=== PATIENT | male | born 1955 | race Caucasian/White ===

== ENCOUNTER 2017-09-02 07:56 | Emergency (ER) | payer BC ==
[2017-09-02 08:18] VITALS: BP 140/71
--- NOTE | 2017-09-02 08:36 | UC ---
Skin Complaint HPI - HPI Summary HPI Summary: Pt reports he removed a tick yesterday morning. Pt believes that tick was attached at least 2-4 days. - History of Current Complaint Chief Complaint: UCBiteInjury Time Seen by Provider: 09/02/17 08:26 Stated Complaint: TICK BITE Hx Obtained From: Patient Onset/Duration: Sudden Onset, Lasting Days, Resolved Skin Exposure Onset/Duration: Days Ago Timing: Constant Onset Severity: Mild Current Severity: None Location: Other - posterior upper right thigh Character: Redness Aggravating Factor(s): Nothing Alleviating Factor(s): Unknown Associated Signs & Symptoms: Positive: Negative Related History: Insect Bite/Sting - Allergy/Home Medications Allergies/Adverse Reactions: Allergies Allergy/AdvReac Type Severity Reaction Status Date / Time No Known Allergies Allergy Verified 09/02/17 08:08 Home Medications: Home Medications Aspirin Low Dose CHEW TAB* [Aspirin Low Dose TAB*] 81 mg PO DAILY 09/02/17 [ History Confirmed 09/02/17] Atenolol TAB* [Tenormin TAB* 50 MG] 100 mg PO DAILY 09/02/17 [History Confirmed 09/02/17] FLUoxetine CAP* [Prozac CAP*] 60 mg PO DAILY 09/02/17 [History Confirmed ] Montelukast Sodium TAB* [Singulair 10 MG TAB*] 10 mg PO DAILY 09/02/17 [History Confirmed 09/02/17] Omeprazole CAP* [Prilosec CAP* 20 MG] 20 mg PO DAILY 09/02/17 [History Confirmed 09/02/17] Rosuvastatin (NF) [Crestor (NF)] 20 mg PO BEDTIME 09/02/17 [History Confirmed ] Review of Systems Constitutional: Negative Skin: Other - erythematous at site of bite Eyes: Negative ENT: Negative Respiratory: Negative Cardiovascular: Negative Gastrointestinal: Negative Genitourinary: Negative Motor: Negative Neurovascular: Negative Musculoskeletal: Negative Neurological: Negative Psychological: Negative Is Patient Immunocompromised?: No All Other Systems Reviewed And Are Negative: Yes PMH/Surg Hx/FS Hx/Imm Hx Previously Healthy: Yes - Surgical History Surgical History: Yes Surgery Procedure, Year, and Place: Coronary Artery Stent, 2010, [place]; Umbilical Herniorrhaphy, 2010, [place]; Left Inguinal Herniorrhaphy, 2008, [place]; Umbilical Herniorrhaphy, ~2005, [place]; Left Eye Eviserasion, 2002, [place]; Right Eye Retinal Detachment, 2001, [place]; Right Inguinal Herniorrhaphy, 1991, [place] - Family History Known Family History: Positive: Cardiac Disease - Social History Occupation: Employed Full-time Lives: With Family Alcohol Use: None Substance Use Type: None Smoking Status (MU): Former Smoker Length of Time of Smoking/Using Tobacco: ~1 PPD x 5 Years Have You Smoked in the Last Year: No When Did the Patient Quit Smoking/Using Tobacco: ~1974 - Immunization History Most Recent Influenza Vaccination: Not the 2016/2017 Season Most Recent Tetanus Shot: Unknown Vaccination Up to Date: No Physical Exam Triage Information Reviewed: Yes Appearance: Well-Appearing Vital Signs: Initial Vital Signs Temp 98.3 F 09/02/17 08:06 Pulse 54 09/02/17 08:06 Resp 16 09/02/17 08:06 BP 140/71 09/02/17 08:06 Pulse Ox 96 09/02/17 08:06 Vital Signs Reviewed: Yes Eye Exam: Normal ENT Exam: Normal Dental Exam: Normal Neck exam: Normal Respiratory Exam: Normal Cardiovascular Exam: Normal Abdominal Exam: Normal Musculoskeletal Exam: Normal Neurological Exam: Normal Psychological Exam: Normal Skin Exam: Other - small 4 mm in diameter mild erythematous, non tender area, right upper posterior thigh Course/Dx - Course Course Of Treatment: I discussed with the patient the risk factors for Lyme and referred him to his PCP for further evaluation or treatment or return to clinic as needed. I discussed treatment options and pt requested to be treated with doxy for at minimum 10 days. - Differential Diagnoses - Skin Complaint Differential Diagnoses: Tick Born Illness, Other - tick bite - Diagnoses Provider Diagnoses: tick bite Discharge - Discharge Plan Condition: Stable Disposition: HOME Prescriptions: DOXYcycline CAP(*) [DOXYcycline 100MG CAP(*)] 100 mg PO Q12H #20 cap Patient Education Materials: Tick Bite (ED) Referrals: Sandra CRUZ,Sumeet Bagley [Medical Doctor] -
== END 2017-09-02 08:54 | disposition home or self-care (01) ==
LOC: UCCORT 07:56
DX: S70.361A Insect bite (nonvenomous), right thigh, initial encounter (principal); W57.XXXA Bitten or stung by nonvenomous insect and other nonvenomous arthropods, initial encounter; Y92.9 Unspecified place or not applicable
CPT/HCPCS: 99202; G0463